=== PATIENT | male | born 1970 | race Caucasian/White ===

== ENCOUNTER 2018-09-27 06:35 | Inpatient (IN) | payer MEDICARE, MEDICAID ==
[2018-09-27] MEDS ORDERED: Acetaminophen 500 MG Tab PO ONE (07:00)
[2018-09-27] MEDS ORDERED: Scopolamine 1.5 MG Transdermal Patch TRDERM ONE (07:00)
[2018-09-27] MEDS ORDERED: Celecoxib 200 MG Cap PO ONE (07:00)
[2018-09-27] MEDS ORDERED: fentaNYL 250 MCG/5 ML SDV ONE ×2 (07:01→09:16)
[2018-09-27] MEDS ORDERED: Propofol 200 MG/20 ML SDV ONE (07:04)
[2018-09-27] MEDS ORDERED: Ondansetron 4 MG/2 ML SDV ONE (07:04)
[2018-09-27] MEDS ORDERED: Dexamethasone 4 MG/ML SDV ONE (07:04)
[2018-09-27] MEDS ORDERED: Neostigmine Methylsulfate 1 MG/ML 5 ML Syringe ONE (07:04)
[2018-09-27] MEDS ORDERED: Succinylcholine 200 MG/10 ML MDV ONE (07:04)
[2018-09-27] MEDS ORDERED: Glycopyrrolate 0.2 MG/ML 5 ML MDV ONE (07:04)
[2018-09-27] MEDS ORDERED: Rocuronium 50 MG/5 ML Vial ONE ×2 (07:04→10:19)
[2018-09-27] MEDS ORDERED: Lactated Ringers 1,000 ML ONE (07:05)
[2018-09-27] MEDS ORDERED: cefOXitin 2 GM Vial ONE (07:11)
[2018-09-27 07:24] LABS: HEMOGLOBIN A1C 9.6 % (4.5-6.2)
[2018-09-27] MEDS ORDERED: Lidocaine 2% 100 MG/5 ML Syringe IVPUSH SCH (07:30)
[2018-09-27] MEDS ORDERED: Ketamine 500 MG/5 ML MDV IV SCH (07:30)
[2018-09-27] MEDS ORDERED: Dextrose 5%-Lactated Ringers 1,000 ML IV SCH ×2 (07:30→14:15)
[2018-09-27] MEDS ORDERED: Ropivacaine 60 ML, Dexamethasone 8 MG, EPINEPHrine 0.4 MG, Sodium Chloride 0.9% 17.6 ML NERVRT SCH ×4 (07:30)
[2018-09-27] MEDS ORDERED: Ketamine 50 MG in Sodium Chloride 0.9% 49.5 ML IV SCH (07:30)
[2018-09-27] MEDS ORDERED: Lidocaine 0.4%/D5W 2 GM/500 ML BAG IV SCH (08:00)
[2018-09-27] MEDS ORDERED: Albuterol/Ipratropium 3.0-0.5 MG/3 ML Neb Soln NEB ONE (08:00)
[2018-09-27] MEDS: cefOXitin 2 GM in Sodium Chloride 0.9% 50 ML IV ONE ×3 (09:32→14:38)
[2018-09-27] MEDS ORDERED: Labetalol 20 MG/4 ML Syringe ONE (10:18)
[2018-09-27] MEDS ORDERED: hydrOXYzine HCl 100 MG/2 ML SDV IM ONE (12:08)
[2018-09-27] MEDS ORDERED: fentaNYL 100 MCG/2 ML SDV IVPUSH ONE ×2 (12:24→12:41)
[2018-09-27] MEDS ORDERED: Insulin Lispro 100 Unit/ML 3 ML KwikPen SUBCUT ONE ×3 (12:38→21:30)
[2018-09-27] MEDS ORDERED: Metoclopramide 10 MG/2 ML SDV IVPUSH PRN (14:05)
[2018-09-27] MEDS ORDERED: Albuterol/Ipratropium 3.0-0.5 MG/3 ML Neb Soln INH PRN (14:05)
[2018-09-27] MEDS ORDERED: diphenhydrAMINE 50 MG/ML SDV IVPUSH PRN (14:05)
[2018-09-27] MEDS ORDERED: Labetalol 20 MG/4 ML Syringe IVPUSH PRN (14:05)
[2018-09-27] MEDS ORDERED: HYDROmorphone 0.5 MG/0.5 ML Syringe IVPUSH PRN (14:05)
[2018-09-27] MEDS ORDERED: Ondansetron 4 MG/2 ML SDV IVPUSH PRN (14:05)
[2018-09-27] MEDS ORDERED: HYDROmorphone 1 MG/ML Syringe IV PRN (14:05)
[2018-09-27] MEDS ORDERED: Pantoprazole 40 MG Vial IVPUSH SCH (15:30)
[2018-09-27] MEDS: Check scopolamine patch SCH ×2 (15:42→22:03)
[2018-09-27] MEDS: cefOXitin 2 GM in Sodium Chloride 0.9% 50 ML IV SCH ×2 (15:42→22:00)
[2018-09-27] MEDS: Acetaminophen Soln 650 MG/20.3 ML UD Cup PO SCH ×2 (15:45→22:00)
[2018-09-27] MEDS: Metoprolol Succinate 50 MG Tab.ER PO SCH (15:46)
[2018-09-27] MEDS: Heparin Sodium 5,000 Units/ML Vial SUBCUT SCH ×2 (15:46→23:04)
[2018-09-27] MEDS ORDERED: MVI, Adult with Vitamin K 10 ML, Thiamine 200 MG, Chromium/Copper/Mang/Selen/Zn 1 ML in... IV SCH ×4 (16:00)
[2018-09-27] MEDS: Albuterol/Ipratropium 3.0-0.5 MG/3 ML Neb Soln INH SCH ×2 (18:05→22:06)
[2018-09-27] MEDS: hydrOXYzine HCl 100 MG/2 ML SDV IM PRN (18:05)
[2018-09-27] MEDS: metFORMIN 500 MG Tab PO SCH (18:06)
[2018-09-27] MEDS: Insulin Lispro 100 Unit/ML 3 ML KwikPen SUBCUT PRN (18:10)
[2018-09-27] MEDS: Lactated Ringers 1,000 ML IV SCH (19:15)
[2018-09-27] MEDS ORDERED: Insulin Glargine,Human Rec. Analog 100 Units/ML 3 ML Pen SUBCUT ONE ×2 (21:00)
[2018-09-27] MEDS: Gabapentin 250 MG/5 ML Solution ML 470 ML Bottle PO SCH (22:00)
[2018-09-28] MEDS: cefOXitin 2 GM in Sodium Chloride 0.9% 50 ML IV SCH ×4 (03:06→21:26)
[2018-09-28] MEDS ORDERED: Iohexol 647 MG/ML 50 ML SDV PO STA (03:37)
[2018-09-28] MEDS: hydrOXYzine HCl 100 MG/2 ML SDV IM PRN (04:32)
[2018-09-28] MEDS: Insulin Lispro 100 Unit/ML 3 ML KwikPen SUBCUT PRN ×4 (04:33→21:28)
[2018-09-28] MEDS: Acetaminophen Soln 650 MG/20.3 ML UD Cup PO SCH ×4 (04:33→21:27)
[2018-09-28] MEDS: Lactated Ringers 1,000 ML IV SCH (04:40)
--- NOTE | 2018-09-28 04:41 | CRLCR ---
Indication: Status post Flori-en-Y surgery. Technique: Abdomen 3 view Comparison: None Findings/Impression: Three submitted images show no dilated loops of bowel within the abdomen with a suture line in the left flank as well as a left upper quadrant drain. Some oral contrast is present on the examination opacifying the distal esophagus and proximal small bowel. No gross extravasation seen. Dictated by Jimmie Morris MD @ Sep 28 2018 4:39AM Signed by Dr. Jimmie Morris @ Sep 28 2018 4:40AM
[2018-09-28] MEDS: Celecoxib 200 MG Cap PO SCH (07:53)
[2018-09-28] MEDS: metFORMIN 500 MG Tab PO SCH ×2 (07:56→17:38)
[2018-09-28] MEDS: Heparin Sodium 5,000 Units/ML Vial SUBCUT SCH ×2 (07:59→15:44)
[2018-09-28] MEDS: Albuterol/Ipratropium 3.0-0.5 MG/3 ML Neb Soln INH SCH ×4 (08:18→21:26)
[2018-09-28] MEDS ORDERED: Ondansetron 4 MG Tab.DIS PO PRN (08:27)
[2018-09-28] MEDS ORDERED: Insulin Glargine,Human Rec. Analog 100 Units/ML 3 ML Pen SUBCUT ONE (09:00)
[2018-09-28] MEDS ORDERED: Non-Formulary Medication 1 Each (Metoprolol Succinate [Toprol Xl 100mg] 100 MG) PO SCH (09:00)
[2018-09-28] MEDS ORDERED: Check scopolamine patch SCH (09:00)
[2018-09-28] MEDS: Gabapentin 250 MG/5 ML Solution ML 470 ML Bottle PO SCH ×3 (09:46→21:25)
[2018-09-28] MEDS: Metoprolol Succinate 50 MG Tab.ER PO SCH (09:55)
[2018-09-28] MEDS: Lisinopril 20 MG Tab PO SCH (10:10)
[2018-09-28] MEDS: Hydrochlorothiazide 25 MG Tab PO SCH (10:11)
[2018-09-28] MEDS: Check scopolamine patch SCH ×2 (10:13→21:27)
[2018-09-28] MEDS: Loratadine 10 MG Tab PO SCH (10:14)
[2018-09-28] MEDS: DULoxetine 30 MG Cap PO SCH (10:14)
[2018-09-28] MEDS: Aspirin 81 MG Tab.EC PO SCH (10:15)
[2018-09-28] MEDS ORDERED: Lisinopril 10 MG Tab PO SCH (12:00)
--- NOTE | 2018-09-28 14:28 | PN ---
DATE OF SERVICE: 09/28/2018 SUBJECTIVE: Mir is postop day #1. He reports his pain is controlled. Blood sugars 374, 356, and 286. He is on a sliding scale with additional coverage with Humalog. He reports he has been feeling good. He does not want to have Trulicity restarted which gave him abdominal pain. Oral intake on a step 1 gastric bypass diet was 590. Urine output 3100. NIRAJ drain put out a light red drainage of 130 mL. REVIEW OF SYSTEMS: Remainder of review of systems negative for any pertinent positives and negatives. OBJECTIVE: GENERAL: Mir is a 47-year-old male. He is sitting up in the chair. Alert and orientated. VITAL SIGNS: TPR, 98.3, 83, 16, blood pressure 121/69. HEENT: Negative. NECK: Supple. HEART: Regular rate and rhythm. LUNGS: Clear. ABDOMEN: Dressing dry and intact. Abdominal binder is on. NIRAJ drain intact as above. EXTREMITIES: Without peripheral edema. ASSESSMENT: 1. Laparoscopic Flori-en-Y gastric bypass surgery. 2. Liver biopsy. 3. Repair of diaphragmatic hernia. 4. Excision of mediastinal lipoma. 5. Small bowel resection and partial gastrectomy for morbid obesity. 6. Hepatomegaly. 7. Diaphragmatic hernia. 8. Immobile small bowel secondary to severe fatty infiltration, mesentery. 9. Mediastinal lipoma. 10.Area of the lesser curvature of the stomach focally deserosalized secondary to adherent lesser omentum. Date of surgery 09/27/2018. Surgeon, Kain Delcid MD. PLAN: 1. Discontinue D5 LR IV. 2. Decrease lactated Ringer's to 100 mL per hour. 3. Dressing off, may shower. 4. Step 2 gastric bypass diet without cereal. 5. Lantus 25 units subcu at 0900. 6. Lantus 30 units subcu at bedtime. 7. Alogliptin before Januvia 25 mg p.o. daily. 8. Check with the patient's insurance company to see if Januvia is covered or else we will check a prior authorization. 9. Zofran ODT 4 mg every 4 hours p.r.n. nausea. 10.Communication order to drink one 30 mL med cup every 20 minutes or 3 per hour. 11.Aspirin 81 mg p.o. daily. 12.Cymbalta 60 mg p.o. daily. 13.Lisinopril 10 mg p.o. at noon. 14.Lisinopril/HCTZ 1 daily. 15.Claritin/loratadine 10 mg p.o. daily. 16.Metoprolol succinate/Toprol-XL 100 mg p.o. daily. 17.Good pulmonary toilet. 18.We will evaluate p.r.n. or in a.m. 19.Planned discharge in a.. Diana Sexton PA-C /[id number]
[2018-09-28] MEDS ORDERED: Pantoprazole 40 MG Delayed-Release Granules 1 Packet PO SCH (16:00)
[2018-09-28] MEDS ORDERED: MVI, Adult with Vitamin K 10 ML, Thiamine 200 MG, Chromium/Copper/Mang/Selen/Zn 1 ML in... IV SCH ×4 (16:00)
[2018-09-28] MEDS ORDERED: Insulin Glargine,Human Rec. Analog 100 Units/ML 3 ML Pen SUBCUT SCH (21:00)
[2018-09-29] MEDS: Heparin Sodium 5,000 Units/ML Vial SUBCUT SCH ×2 (01:23→07:59)
[2018-09-29] MEDS: Acetaminophen Soln 650 MG/20.3 ML UD Cup PO SCH ×2 (04:41→09:28)
[2018-09-29] MEDS: Albuterol/Ipratropium 3.0-0.5 MG/3 ML Neb Soln INH SCH (07:10)
[2018-09-29] MEDS: metFORMIN 500 MG Tab PO SCH (07:56)
[2018-09-29] MEDS: Celecoxib 200 MG Cap PO SCH (07:56)
[2018-09-29] MEDS ORDERED: Cyanocobalamin (Vitamin B12) 1,000 MCG/ML SDV IM ONE (09:00)
[2018-09-29] MEDS: Gabapentin 250 MG/5 ML Solution ML 470 ML Bottle PO SCH (09:27)
[2018-09-29] MEDS: Lisinopril 20 MG Tab PO SCH (09:28)
[2018-09-29] MEDS: Aspirin 81 MG Tab.EC PO SCH (09:28)
[2018-09-29] MEDS: Hydrochlorothiazide 25 MG Tab PO SCH (09:28)
[2018-09-29] MEDS: DULoxetine 30 MG Cap PO SCH (09:28)
[2018-09-29] MEDS: Check scopolamine patch SCH (09:29)
[2018-09-29] MEDS: Metoprolol Succinate 50 MG Tab.ER PO SCH (09:29)
[2018-09-29] MEDS: Loratadine 10 MG Tab PO SCH (09:30)
--- NOTE | 2018-09-30 08:43 | DISCH ---
ADMISSION DIAGNOSES: 1. Morbid obesity, BMI 46. 2. Type 2 diabetes without complication. 3. Gastroesophageal reflux disease. 4. Major depression disorder. 5. Chronic low back pain. 6. Osteochondritis dissecans of talus. 7. Irritable bowel syndrome. 8. Hypertension. 9. Constipation. 10.Fibromyalgia. 11.Arthritis of knees. 12.Borderline personality disorder. 13.Chronic obstructive pulmonary disease. 14.Post-traumatic stress disorder. 15.Polysubstance dependence, nonopioid, in remission. 16.Severe alcohol dependence, in early remission. 17.Mixed hypercholesterolemia with hypertriglyceridemia. 18.Chronic pain following surgery or procedure. 19.Psychophysiological insomnia. 20.Diabetic arthropathy. 21.Arthralgia. 22.Decreased strength, endurance, and mobility. DISCHARGE DIAGNOSES: 1. Laparoscopic Flori-en-Y gastric bypass surgery. 2. Liver biopsy. 3. Repair of diaphragmatic hernia. 4. Excision of mediastinal lipoma. 5. Small bowel resection. 6. Partial gastrectomy. POSTOPERATIVE DIAGNOSES: 1. Morbid obesity. 2. Hepatomegaly. 3. Diaphragmatic hernia. 4. Immobile small bowel secondary to severe fatty infiltration of mesentery. 5. Mediastinal lipoma in the area of the lesser curvature of the stomach, focally deserosalized secondary to adherent lesser omentum. 6. Date of surgery 09/27/2018. 7. Surgeon: Kain Delcid MD. HISTORY: Mir Carbajal is a 47-year-old male with longstanding history of morbid obesity and increasing comorbidities. After preoperative evaluation and discussion of possible risks and possible complications, he wished to proceed with surgical procedure. HOSPITAL COURSE: Mir had his surgery on 07/30/2018. He had no operative complications. On postoperative day #1, his upper GI was normal. He was started on step 2 gastric bypass diet without cereal. His blood sugars were monitored closely. He was given additional coverage with the Humalog and started on generic equivalent Januvia 100 mg, metformin 1000 mg b.i.d., and Lantus was adjusted according to his blood sugars. Vital signs were stable. Oral intake adequate at 2440. Urine output 4100. NIRAJ drain put out 50 mL of a light red drainage prior to being discharged. He did receive dietary education and a B12 1000 mcg injection. Mir will be discharged to home in stable condition on 09/29/2018. PHYSICAL EXAMINATION: GENERAL: Mir is a pleasant 47-year-old male. VITAL SIGNS: Height is 5 feet 5 inches, weight 278 pounds 14.4 ounces, BMI 46. TPR 98.9, 79, 16, blood pressure 121/76. HEENT: Negative. NECK: Supple. HEART: Regular rate and rhythm. LUNGS: Clear. ABDOMEN: Incisions look good. Sutures intact. NIRAJ drain will be removed and 4 x 4 will be placed over NIRAJ drain site. Abdominal binder has been on. EXTREMITIES: Without peripheral edema. LABORATORY DATA: Past 24 hour blood sugars starting with 0400; 286, 205, 182. DISPOSITION: Discharged to home. CONDITION: Stable and improving. FOLLOWUP APPOINTMENT: Diana Sexton PA-C, 10/05/2018 at 11 a.m. NEW MEDICATIONS: 1. Tylenol 650 mg q.6 hours for pain. 2. Celebrex 200 mg oral daily #14, to start tomorrow. 3. Lantus 30 units subcu at bedtime. 4. Zofran ODT 4 mg q.4 hours p.r.n. nausea. 5. Januvia 100 mg oral daily, #30, 11 refills. 6. He is to resume Cymbalta 60 mg oral daily. 7. Lisinopril 10 mg oral daily. 8. Lisinopril hydrochlorothiazide 20/25 one daily. 9. Loratadine/Claritin 10 mg oral daily. 10.Metoprolol-XL 100 mg daily. 11.Omeprazole 20 mg before breakfast. 12.Pravachol 10 mg oral at supper time. 13.Senna. 14.Docusate 1 tablet three times a day. 15.Metformin 1000 mg oral twice daily. He is to discontinue taking extra-strength Tylenol, vitamin D3, vitamin B12, Trulicity, folic acid, multivitamin, Super B, omega-3, and vitamin B12, and Levemir 46 is changed to 30 units once daily. DIET: Drink 8 to 10 glasses of water a day. Step 2 gastric bypass diet with no cereal until Wednesday10/12/2018. ACTIVITY: No lifting greater than 10 pounds for 2 weeks. Walk at least 6 times daily, distance and time as tolerated. Driving: Do not drive for 1 week. Shower/bathing: May shower. DISCHARGE INSTRUCTIONS: Notify provider if any increased pain, nausea, or vomiting. Keep site clean and dry. Wear abdominal binder for 2 weeks and then as tolerated. SPECIAL INSTRUCTION: 1. Use incentive spirometer 10 times every hour while awake. 2. Check blood sugars 4 times a day and call clinic on Wednesday with results of blood sugars at [phone]. 3. Call hospital on Wednesday and Wednesday, [phone], and Diana Sexton PA-C page, so we can review the blood sugar results. 4. Keep a record of food and liquid intake. 5. Bring record of blood sugars, protein and fluid intake to clinic appointment.
--- NOTE | 2018-10-04 09:38 | OR ---
DATE OF PROCEDURE: 09/27/2018 SURGEON: Kain Delcid MD PREOPERATIVE DIAGNOSIS: Morbid obesity. POSTOPERATIVE DIAGNOSES: 1. Morbid obesity. 2. Marked hepatomegaly. 3. Paraesophageal diaphragmatic hernia. 4. Immobile small bowel secondary to severe fatty infiltration of small bowel mesentery. 5. Mediastinal lipoma. 6. Area of lesser curvature of stomach focally deserosalized secondary to adherent omentum. PROCEDURE: 1. Laparoscopic Flori-en-Y gastric bypass with long limb gastroenterostomy (78082). 2. Joseph-Cut needle liver biopsy (87634). 3. Repair of paraesophageal diaphragmatic hernia (35505). 4. Excision of mediastinal lipoma (22578). 5. Small bowel resection (59939). 6. Partial gastrectomy (58390). ANESTHESIA: General. OPERATIONS OFFICER AFLOAT: Diana Sexton PA-C and MYKEL Velazquez. INDICATION FOR PROCEDURE: This is a 47-year-old male presenting with longstanding morbid obesity and increasingly significant comorbidities. After preoperative evaluation and discussion, he wished to proceed with a gastric bypass procedure. Potential risks of the procedure including bleeding, infection, injury to underlying viscera, problems with bowel obstruction over time, leaks from various GI tract closures, as well as possibility of cardiopulmonary, septic, or hemorrhagic complications leading to were discussed, and the patient wishes to proceed. DETAILS OF PROCEDURE: The patient was taken to the operating room, and after general endotracheal anesthesia was induced, he was placed in a lithotomy position and the abdomen prepped and draped. At 15 cm inferior and 5 cm left of xiphoid process, a transverse incision was made and peritoneal cavity entered under direct vision with an Optiview trocar inflated to 15 mmHg pressure of CO2. Laparoscope was then reinserted. No underlying trocar insertion site injuries were seen. Following this, 5 additional trocars were placed across the upper and mid abdomen, bilateral subcostal transversus abdominis plane blocks were placed, and the liver was noted to be markedly enlarged and fatty infiltrated. Joseph-Cut needle liver biopsies were obtained from left lobe of liver, and minimal bleeding from the biopsy sites was controlled with electrocautery. At this point, the omentum was then divided in the midline up to the level of the transverse colon. This allowed identification of small bowel at the ligament of Treitz. The small bowel was then traced out 200 cm distal to that point and divided transversely with the WISAM stapler. At that point, the small bowel was noted to be extremely immobile, due to it being quite restricted by a very fat ladened mesentery to facilitate subsequent mobility of the jejunojejunostomy. Ten centimeters of the biliopancreatic limb was then resected to underlying mesentery and divided with Harmonic scalpel and the dissection was accomplished with WISAM staple line and the small bowel specimen delivered from the field. Small bowel was traced out additional 200 cm, where the [id number] enteroenterostomy was accomplished with an internal firing of the Endo-WISAM 60 mm stapler, common opening closed transversely with the same stapler, angles anastomosed, and mesenteric defect approximated with some 0 Ethibond stitch, along with fibrin sealant. The divided end of the Flori limb was from the mesentery for a few centimeters, which allowed antecolic positioning of the Flori limb up to the level of the gastroesophageal junction without tension. The liver was the retracted anteriorly, and the patient was noted to have a significant paraesophageal diaphragmatic hernia with prolapsed portion of the gastric fundus, perigastric fat, and tongue of omentum were noted to be prolapsing in a plane anterior to the course of the esophagus. This was reduced, and the peritoneum overlying it incised and reflected downward. The patient was noted to have a roughly ping-pong ball-sized mediastinal lipoma present, and this was excised and sent for histologic evaluation. This allowed more adequate closure of the diaphragmatic hernia, which was accomplished with 0 Ethibond sutures reinforced with PTFE pledgets. The gastrointestinal catheter was then inflated to 15 mL and pulled up snuggly against the EG junction. Gastric wall over the apex of balloon was then marked with electrocautery, and balloon catheter deflated and pulled up in the esophagus. The dissection began along the lesser curvature of the stomach. This began just below the cauterized pamela. The stomach in that area was noted to be quite densely fused to the lesser omentum, suggesting possible previous ulcer in that area. As this was dissected, significant portion of the stomach was noted to be deserosalized, and after initial firing of the WISAM stapler at the level of the cauterized pamela in a transverse orientation, that portion of the stomach was resected to make sure there were no subsequent leaks from that deserosalized portion of the stomach. This was accomplished with 2 firings of WISAM black loads. In general, the stomach was very thickened, and the entire pouch was created with black loads. After initial transverse firing, additional firings up to and through the angle of His were accomplished, and upon completion of the pouch, both staple lines were noted to be intact. The anvil of a 25 mm EEA stapler was attached to Carr sump type tube. The latter was brought down through the mouth. Of note, we used a 4.8 mm StapleLight EEA in this case because of the thickness of the stomach, as well as small bowel. After placement of the anvil in the pouch, the divided Flori limb was opened and the main body of the EEA stapler passed several centimeters into the small bowel, brought up the anvil, and united with it, thus creating the gastrojejunostomy. Upon removal of stapler, double donuts of mucosa were noted within it. Small bowel was closed off with a vascular staple line. Gastrojejunostomy was reinforced with 3-0 Vicryl seromuscular stitch, along with fibrin sealant. Leak test was accomplished with injection of 120 mL of air in the gastric pouch while submerged with a cefoxitin-containing saline solution. No leaks were identified. Two Yaw-Curtis drains were then placed adjacent to the gastrojejunostomy and taken out the subcostal trocar sites. With no further problems noted, trocars were removed and the peritoneal cavity deflated. Incisions were closed with some 4-0 Vicryl skin stitch, and the drains were also affixed with some 4-0 Vicryl stitch as well. The patient was taken to the recovery room in satisfactory condition. Physician physician assistant, Diana Sexton, played an essential role in assisting in this case, helping to position the patient, retract structures as needed, as well as suturing and cutting sutures when indicated. Her presence improved patient safety and decreased the operative time. Kain Delcid MD /[id number]
== END 2018-09-29 10:35 | disposition home or self-care (01) | DRG 620 ==
LOC: JP.MS 06:35 → JP.SDS 06:36 → EDSTATUS 07:30 → JP.2SS 13:39
PROVIDERS: ADMIT Surgery; ATTEND Surgery
PROC: 0D164ZA Bypass Stomach to Jejunum, Percutaneous Endoscopic Approach (ICD-10-PCS; principal; 2018-09-27)
PROC: 0FB24ZX Excision of Left Lobe Liver, Percutaneous Endoscopic Approach, Diagnostic (ICD-10-PCS; 2018-09-27)
PROC: 0BQT4ZZ Repair Diaphragm, Percutaneous Endoscopic Approach (ICD-10-PCS; 2018-09-27)
PROC: 0DB63ZZ Excision of Stomach, Percutaneous Approach (ICD-10-PCS; 2018-09-27)
PROC: 0DB83ZZ Excision of Small Intestine, Percutaneous Approach (ICD-10-PCS; 2018-09-27)
PROC: 0DB94ZZ Excision of Duodenum, Percutaneous Endoscopic Approach (ICD-10-PCS; 2018-09-27)
PROC: 0WBC4ZX Excision of Mediastinum, Percutaneous Endoscopic Approach, Diagnostic (ICD-10-PCS; 2018-09-27)
PROC: 0DB64ZZ Excision of Stomach, Percutaneous Endoscopic Approach (ICD-10-PCS; 2018-09-27)
DX: E66.01 Morbid (severe) obesity due to excess calories (principal); F33.1 Major depressive disorder, recurrent, moderate; Z68.42 Body mass index [BMI] 45.0-49.9, adult; R16.0 Hepatomegaly, not elsewhere classified; K44.9 Diaphragmatic hernia without obstruction or gangrene; D17.4 Benign lipomatous neoplasm of intrathoracic organs; K76.0 Fatty (change of) liver, not elsewhere classified; K59.8 Other specified functional intestinal disorders; K21.9 Gastro-esophageal reflux disease without esophagitis; G89.29 Other chronic pain; M54.5 Low back pain; K58.1 Irritable bowel syndrome with constipation; I10 Essential (primary) hypertension; M79.7 Fibromyalgia; M17.0 Bilateral primary osteoarthritis of knee; F60.3 Borderline personality disorder; J44.9 Chronic obstructive pulmonary disease, unspecified; F43.10 Post-traumatic stress disorder, unspecified; F10.21 Alcohol dependence, in remission; F19.21 Other psychoactive substance dependence, in remission; E78.00 Pure hypercholesterolemia, unspecified; E78.1 Pure hyperglyceridemia; F51.04 Psychophysiologic insomnia; E11.618 Type 2 diabetes mellitus with other diabetic arthropathy; E11.65 Type 2 diabetes mellitus with hyperglycemia; E78.5 Hyperlipidemia, unspecified; J45.40 Moderate persistent asthma, uncomplicated; Z79.899 Other long term (current) drug therapy; Z79.4 Long term (current) use of insulin; Z98.1 Arthrodesis status; Z88.1 Allergy status to other antibiotic agents; Z88.8 Allergy status to other drugs, medicaments and biological substances
CPT/HCPCS: 36415; 74240; 80053; 82962; 83036; 83735; 83880; 84100; 85027; 86850; 86900; 86901; 88304; 88307; 88313; 94640; A9270-GY; C9113; J0171; J0330; J0694; J1100; J1170; J1644; J1815; J1815-GY; J2001; J2405; J2704; J2710; J2795; J3010; J3410; J3411; J3420; J3490; J7030; J7042; J7050; J7120; J7620-GY; Q9967

== ENCOUNTER 2022-01-09 08:02 | Inpatient (IN) | payer MEDICARE, MEDICAID ==
[~2022-01-09 08:02] MED LIST: Bupivacaine 0.5%/EPINEPHrine 1:200,000 50 ML MDV ONE; Dexamethasone 4 MG/ML SDV ONE; Glycopyrrolate 0.2 MG/ML 5 ML MDV ONE; Lidocaine 1% 50 ML MDV ONE; Meropenem 500 MG SDV ONE; Neostigmine Methylsulfate 1 MG/ML 5 ML Syringe ONE; Ondansetron 4 MG/2 ML SDV ONE; Propofol 200 MG/20 ML SDV ONE; Rocuronium 50 MG/5 ML Vial ONE; Succinylcholine 200 MG/10 ML MDV ONE; fentaNYL 250 MCG/5 ML SDV ONE
[2022-01-09] MEDS ORDERED: Acetaminophen 500 MG Tab PO ONE (08:30)
[2022-01-09] MEDS ORDERED: Dextrose 5%-Lactated Ringers 1,000 ML IV SCH ×2 (09:30→16:00)
[2022-01-09] MEDS ORDERED: Albuterol/Ipratropium 3.0-0.5 MG/3 ML Neb Soln NEB ONE (09:45)
[2022-01-09] MEDS ORDERED: Ketamine 500 MG/5 ML MDV IV SCH (10:00)
[2022-01-09] MEDS ORDERED: ceFAZolin 2 GM in Sodium Chloride 0.9% 100 ML IV ONE (10:00)
[2022-01-09] MEDS ORDERED: Ketamine 17 MG in Sodium Chloride 0.9% 19.83 ML IV SCH (10:00)
[2022-01-09] MEDS ORDERED: ceFAZolin 2 GM in Premix Bag 1 BAG IV ONE (10:00)
[2022-01-09] MEDS ORDERED: fentaNYL 250 MCG/5 ML SDV ONE (13:19)
[2022-01-09] MEDS ORDERED: Rocuronium 50 MG/5 ML Vial ONE (13:38)
[2022-01-09] MEDS ORDERED: Naloxone 0.4 MG/ML SDV IVPUSH PRN (14:15)
[2022-01-09] MEDS ORDERED: diphenhydrAMINE 50 MG/ML SDV IVPUSH PRN ×2 (14:15→16:00)
[2022-01-09] MEDS ORDERED: Ondansetron 4 MG/2 ML SDV IVPUSH PRN (14:15)
[2022-01-09] MEDS ORDERED: diphenhydrAMINE 25 MG Cap PO PRN (14:15)
[2022-01-09] MEDS ORDERED: Linezolid 600 MG/300 ML Premix Bag IRR ONE (14:23)
[2022-01-09] MEDS: HYDROmorphone/Normal Saline 6 MG/30 ML PCA Vial IV PRN (14:38)
[2022-01-09] MEDS ORDERED: Lactated Ringers 1,000 ML ONE (14:44)
[2022-01-09] MEDS ORDERED: Naloxone 0.4 MG/ML SDV IV PRN (15:00)
[2022-01-09] MEDS ORDERED: fentaNYL 100 MCG/2 ML SDV ONE (15:09)
[2022-01-09] MEDS ORDERED: Glucagon,Human Recombinant 1 MG Vial IM PRN ×2 (15:24→16:00)
[2022-01-09] MEDS ORDERED: 50% Dextrose in Water 50 ML Syringe IVPUSH PRN ×2 (15:24→16:00)
[2022-01-09] MEDS ORDERED: hydrOXYzine HCL 100 MG/2 ML SDV IM ONE (15:27)
[2022-01-09] MEDS ORDERED: Insulin Lispro 100 Unit/ML 3 ML KwikPen SUBCUT ONE (15:45)
[2022-01-09] MEDS ORDERED: Cyclobenzaprine 10 MG Tab PO PRN (15:51)
[2022-01-09] MEDS ORDERED: Lactated Ringers 1,000 ML IV SCH (16:00)
[2022-01-09] MEDS ORDERED: Albuterol/Ipratropium 3.0-0.5 MG/3 ML Neb Soln INH PRN (16:00)
[2022-01-09] MEDS ORDERED: LORazepam 1 MG Tab PO PRN (16:00)
[2022-01-09] MEDS ORDERED: Acetaminophen 500 MG Tab PO PRN (16:00)
[2022-01-09] MEDS ORDERED: Scopolamine 1.5 MG Transdermal Patch TOP SCH (16:00)
[2022-01-09] MEDS ORDERED: LORazepam 2 MG/ML SDV IVPUSH ONE (16:00)
[2022-01-09] MEDS ORDERED: Labetalol 20 MG/4 ML Syringe IVPUSH PRN (16:00)
[2022-01-09] MEDS ORDERED: Metoclopramide 10 MG/2 ML SDV IVPUSH PRN (16:00)
[2022-01-09] MEDS ORDERED: LORazepam 2 MG/ML SDV IVPUSH PRN (16:01)
[2022-01-09] MEDS ORDERED: Hypromellose 0.3% Ophth Soln 15 ML Bottle EYEBOTH PRN (16:02)
[2022-01-09] MEDS: MVI, Adult with Vitamin K 10 ML, Thiamine 200 MG, Zinc/Copper/Manganese/Selenium 1 ML i... IV SCH ×4 (16:43)
[2022-01-09] MEDS: Ondansetron 4 MG/2 ML SDV IVPUSH PRN ×2 (17:07→20:56)
[2022-01-09] MEDS: Insulin Lispro 100 Unit/ML 3 ML KwikPen SUBCUT SCH ×2 (17:57→21:54)
[2022-01-09] MEDS: Pantoprazole 40 MG Vial IVPUSH SCH (17:58)
[2022-01-09] MEDS: Pravastatin 20 MG Tab PO SCH (18:33)
[2022-01-09] MEDS: Lisinopril 20 MG Tab PO SCH (18:33)
[2022-01-09] MEDS: Acetaminophen 500 MG Tab PO SCH (18:33)
[2022-01-09] MEDS: cefOXitin 2 GM in Sodium Chloride 0.9% 50 ML IV SCH (19:34)
[2022-01-09] MEDS: Heparin Sodium 5,000 Units/ML Vial SUBCUT SCH (19:45)
[2022-01-09] MEDS: Albuterol/Ipratropium 3.0-0.5 MG/3 ML Neb Soln INH SCH (21:15)
[2022-01-10] MEDS: Acetaminophen 500 MG Tab PO SCH ×3 (01:23→16:11)
[2022-01-10] MEDS: cefOXitin 2 GM in Sodium Chloride 0.9% 50 ML IV SCH ×4 (01:23→19:32)
[2022-01-10] MEDS: Ondansetron 4 MG/2 ML SDV IVPUSH PRN (01:32)
[2022-01-10] MEDS ORDERED: Iopamidol 612 MG/ML 50 ML SDV IV PRN (04:09)
[2022-01-10] MEDS: Insulin Lispro 100 Unit/ML 3 ML KwikPen SUBCUT SCH ×4 (04:56→21:38)
[2022-01-10 05:34] LABS: ESTIMATED GFR 82 mL/min (>60)
[2022-01-10] MEDS: DULoxetine 30 MG Cap PO SCH (08:40)
[2022-01-10] MEDS: Aspirin 81 MG Tab.EC PO SCH (08:41)
[2022-01-10] MEDS: Lisinopril 20 MG Tab PO SCH (08:41)
[2022-01-10] MEDS: Celecoxib 200 MG Cap PO SCH ×2 (08:41→20:50)
[2022-01-10] MEDS: SCOPOLAMINE PATCH CHECK TOP SCH (08:42)
[2022-01-10] MEDS: Heparin Sodium 5,000 Units/ML Vial SUBCUT SCH ×2 (08:44→19:32)
[2022-01-10] MEDS: Bisacodyl 5 MG Tab PO SCH ×2 (08:53→20:50)
[2022-01-10] MEDS: HYDROmorphone/Normal Saline 6 MG/30 ML PCA Vial IV PRN ×3 (09:45→22:35)
[2022-01-10] MEDS: Lactated Ringers 1,000 ML IV SCH (11:30)
[2022-01-10] MEDS: Hypromellose 0.3% Ophth Soln 15 ML Bottle EYEBOTH SCH (11:31)
[2022-01-10] MEDS: Mometasone Furoate Powder 220 MCG/Puff 14 Dose Inhaler INH SCH (11:49)
[2022-01-10] MEDS: Albuterol/Ipratropium 3.0-0.5 MG/3 ML Neb Soln INH SCH ×4 (13:32→20:49)
[2022-01-10] MEDS: MVI, Adult with Vitamin K 10 ML, Thiamine 200 MG, Zinc/Copper/Manganese/Selenium 1 ML i... IV SCH ×4 (16:04)
[2022-01-10] MEDS: Pravastatin 20 MG Tab PO SCH (16:10)
[2022-01-10] MEDS: Pantoprazole 40 MG Vial IVPUSH SCH (16:10)
[2022-01-11] MEDS: Acetaminophen 500 MG Tab PO SCH ×3 (00:57→16:08)
[2022-01-11] MEDS: Lactated Ringers 1,000 ML IV SCH (00:57)
[2022-01-11] MEDS: cefOXitin 2 GM in Sodium Chloride 0.9% 50 ML IV SCH ×2 (01:00→07:50)
[2022-01-11] MEDS: hydrOXYzine HCL 100 MG/2 ML SDV IM PRN ×2 (02:06→19:34)
[2022-01-11] MEDS: Insulin Lispro 100 Unit/ML 3 ML KwikPen SUBCUT SCH ×4 (04:45→21:46)
[2022-01-11] MEDS: Albuterol/Ipratropium 3.0-0.5 MG/3 ML Neb Soln INH SCH ×4 (07:40→20:49)
[2022-01-11] MEDS ORDERED: Sodium Chloride 0.9% 10 ML Syringe IV PRN (07:51)
[2022-01-11] MEDS: Heparin Sodium 5,000 Units/ML Vial SUBCUT SCH ×2 (07:51→20:49)
[2022-01-11] MEDS: oxyCODONE 5 MG Tab PO PRN ×3 (07:59→18:08)
[2022-01-11] MEDS: Celecoxib 200 MG Cap PO SCH ×2 (08:01→20:49)
[2022-01-11] MEDS: Aspirin 81 MG Tab.EC PO SCH (08:02)
[2022-01-11] MEDS: DULoxetine 30 MG Cap PO SCH (08:02)
[2022-01-11] MEDS: Bisacodyl 5 MG Tab PO SCH ×2 (08:03→20:49)
[2022-01-11] MEDS: Lisinopril 20 MG Tab PO SCH (08:03)
[2022-01-11] MEDS ORDERED: Cyanocobalamin (Vitamin B12) 1,000 MCG/ML SDV IM ONE (09:00)
[2022-01-11] MEDS: Mometasone Furoate Powder 220 MCG/Puff 14 Dose Inhaler INH SCH (09:04)
[2022-01-11] MEDS: SCOPOLAMINE PATCH CHECK TOP SCH (09:04)
[2022-01-11] MEDS: Hypromellose 0.3% Ophth Soln 15 ML Bottle EYEBOTH SCH (10:47)
[2022-01-11] MEDS: Pravastatin 20 MG Tab PO SCH (16:08)
[2022-01-11] MEDS ORDERED: Pantoprazole 40 MG Tab.CR PO SCH (17:00)
[2022-01-11] MEDS: Ondansetron 4 MG/2 ML SDV IVPUSH PRN (19:25)
[2022-01-11] MEDS: Ondansetron 4 MG Tab.DIS PO PRN (20:49)
[2022-01-12] MEDS: Acetaminophen 500 MG Tab PO SCH ×2 (00:33→08:18)
[2022-01-12] MEDS: Insulin Lispro 100 Unit/ML 3 ML KwikPen SUBCUT SCH (05:20)
[2022-01-12] MEDS: oxyCODONE 5 MG Tab PO PRN (05:31)
[2022-01-12] MEDS: Mometasone Furoate Powder 220 MCG/Puff 14 Dose Inhaler INH SCH (07:06)
[2022-01-12] MEDS: Albuterol/Ipratropium 3.0-0.5 MG/3 ML Neb Soln INH SCH (07:06)
[2022-01-12] MEDS: Aspirin 81 MG Tab.EC PO SCH (08:16)
[2022-01-12] MEDS: Heparin Sodium 5,000 Units/ML Vial SUBCUT SCH (08:16)
[2022-01-12] MEDS: DULoxetine 30 MG Cap PO SCH (08:16)
[2022-01-12] MEDS: Lisinopril 20 MG Tab PO SCH (08:17)
[2022-01-12] MEDS: Celecoxib 200 MG Cap PO SCH (08:17)
[2022-01-12] MEDS: Hypromellose 0.3% Ophth Soln 15 ML Bottle EYEBOTH SCH (08:17)
[2022-01-12] MEDS: Bisacodyl 5 MG Tab PO SCH (08:17)
[2022-01-12] MEDS: Ondansetron 4 MG Tab.DIS PO PRN (09:23)
== END 2022-01-12 10:05 | disposition home or self-care (01) | DRG 329 ==
LOC: JP.SDS 08:02 → JP.2SS 16:36
PROVIDERS: ADMIT Surgery; ATTEND Surgery
PROC: 0DBA0ZZ Excision of Jejunum, Open Approach (ICD-10-PCS; principal; 2022-01-09)
PROC: 0DB80ZZ Excision of Small Intestine, Open Approach (ICD-10-PCS; 2022-01-09)
PROC: 0DS80ZZ Reposition Small Intestine, Open Approach (ICD-10-PCS; 2022-01-09)
PROC: 0WPF0JZ Removal of Synthetic Substitute from Abdominal Wall, Open Approach (ICD-10-PCS; 2022-01-09)
PROC: 3E0M05Z Introduction of Adhesion Barrier into Peritoneal Cavity, Open Approach (ICD-10-PCS; 2022-01-09)
DX: K95.89 Other complications of other bariatric procedure (principal); K56.2 Volvulus; K21.9 Gastro-esophageal reflux disease without esophagitis; M54.50 Low back pain, unspecified; G89.29 Other chronic pain; J44.9 Chronic obstructive pulmonary disease, unspecified; G47.33 Obstructive sleep apnea (adult) (pediatric); E11.9 Type 2 diabetes mellitus without complications; I10 Essential (primary) hypertension; F41.8 Other specified anxiety disorders; E66.01 Morbid (severe) obesity due to excess calories; Z79.899 Other long term (current) drug therapy; Z68.36 Body mass index [BMI] 36.0-36.9, adult
CPT/HCPCS: 36415; 74240; 74240-26; 80053; 82947; 83735; 83880; 84100; 85025; 93005; 94640; A9270-GY; C9113; J0171; J0330; J0690; J0694; J1100; J1170; J1644; J1815; J2001; J2020; J2060; J2185; J2405; J2704; J2710; J2765; J2795; J3010; J3410; J3411; J3420; J3490; J7120; J7121; J7620; Q0162; Q9967

== ENCOUNTER 2022-10-15 07:44 | Inpatient (IN) | payer MEDICARE, MEDICAID ==
[~2022-10-15 07:44] MED LIST changes: -Bupivacaine 0.5%/EPINEPHrine 1:200,000 50 ML MDV ONE; -Dexamethasone 4 MG/ML SDV ONE; -Glycopyrrolate 0.2 MG/ML 5 ML MDV ONE; -Lidocaine 1% 50 ML MDV ONE; -Neostigmine Methylsulfate 1 MG/ML 5 ML Syringe ONE; -Ondansetron 4 MG/2 ML SDV ONE; -Propofol 200 MG/20 ML SDV ONE; -Rocuronium 50 MG/5 ML Vial ONE; -Succinylcholine 200 MG/10 ML MDV ONE
[2022-10-15] MEDS ORDERED: Scopolamine 1.5 MG Transdermal Patch TRDERM SCH (08:00)
[2022-10-15] MEDS ORDERED: Dextrose 5%-Lactated Ringers 1,000 ML IV SCH (08:30)
[2022-10-15 08:47] LABS: A/G RATIO 1.3 (1.2-2.2); ALANINE AMINOTRANSFERASE,ALT 28 U/L (12-78); ALBUMIN 3.7 g/dL (3.4-5.0); ALKALINE PHOSPHATASE 137 U/L (46-116); ANION GAP 7.7 mmol/L (5.0-14.0); ASPARTATE AMNIOTRANSFERASE,AST 18 U/L (15-37); BILIRUBIN TOTAL 0.5 mg/dL (0.2-1.0); BLOOD UREA NITROGEN,BUN 7 mg/dL (7-18); CALCIUM 8.4 mg/dL (8.5-10.1); CARBON DIOXIDE,CO2 27 mmol/L (21-32); CHLORIDE,CL 106 mmol/L (100-108); CREATININE 0.8 mg/dL (0.8-1.3); EST CRCL DRUG DOSING (CG) 93.53 mL/min; ESTIMATED GFR 108 mL/min (>60); FERRITIN 103 ng/ml (8-388); GLUCOSE RANDOM 75 mg/dL (74-106); MAGNESIUM 1.9 mg/dL (1.8-2.4); PHOSPHORUS 3.5 mg/dL (2.5-4.9); POTASSIUM,K 3.9 mmol/L (3.6-5.2); PROTEIN TOTAL,TP 6.6 g/dL (6.4-8.2); SODIUM,NA 141 mmol/L (140-148)
[2022-10-15 08:53] LABS: HEMOGLOBIN A1C 5.3 % (4.5-6.2)
[2022-10-15] MEDS ORDERED: Albuterol/Ipratropium 3.0-0.5 MG/3 ML Neb Soln NEB ONE (09:00)
[2022-10-15] MEDS ORDERED: Ketamine 18 MG in Sodium Chloride 0.9% 19.82 ML IV SCH (09:30)
[2022-10-15] MEDS ORDERED: Ketamine 500 MG/5 ML MDV IV SCH (09:30)
[2022-10-15] MEDS ORDERED: ceFAZolin 2 GM in Premix Bag 1 BAG IV ONE (09:30)
[2022-10-15] MEDS ORDERED: Ropivacaine 40 ML, dexAMETHasone 8 MG, EPINEPHrine 0.4 MG, Sodium Chloride 0.9% 37.6 ML NERVRT SCH ×4 (09:30)
[2022-10-15] MEDS ORDERED: Neostigmine Methylsulfate 1 MG/ML 5 ML Syringe ONE (09:57)
[2022-10-15] MEDS ORDERED: Ondansetron 4 MG/2 ML SDV ONE ×2 (09:57→10:03)
[2022-10-15] MEDS ORDERED: Succinylcholine 200 MG/10 ML MDV ONE (09:57)
[2022-10-15] MEDS ORDERED: Propofol 200 MG/20 ML SDV ONE (09:57)
[2022-10-15] MEDS ORDERED: Glycopyrrolate 0.2 MG/ML 5 ML MDV ONE (09:57)
[2022-10-15] MEDS ORDERED: Rocuronium 50 MG/5 ML Vial ONE (09:57)
[2022-10-15] MEDS ORDERED: Dexamethasone 4 MG/ML SDV ONE (09:57)
[2022-10-15] MEDS ORDERED: Ondansetron 4 MG/2 ML SDV IVPUSH ONE (09:59)
[2022-10-15] MEDS ORDERED: Bupivacaine 0.5% 50 ML MDV ONE (10:29)
[2022-10-15] MEDS ORDERED: Lidocaine 1% with EPINEPHrine 1:100,000 50 ML MDV ONE (10:29)
[2022-10-15] MEDS ORDERED: Ondansetron 4 MG/2 ML SDV IVPUSH PRN ×2 (11:38→14:00)
[2022-10-15] MEDS ORDERED: diphenhydrAMINE 25 MG Cap PO PRN (11:38)
[2022-10-15] MEDS ORDERED: diphenhydrAMINE 50 MG/ML SDV IVPUSH PRN ×2 (11:38→14:00)
[2022-10-15] MEDS ORDERED: Naloxone 0.4 MG/ML SDV IVPUSH PRN (11:38)
[2022-10-15] MEDS ORDERED: fentaNYL 250 MCG/5 ML SDV ONE ×2 (11:43→11:59)
[2022-10-15] MEDS ORDERED: Naloxone 0.4 MG/ML SDV IV PRN (12:00)
[2022-10-15] MEDS ORDERED: Linezolid 600 MG/300 ML Premix Bag IRR ONE (12:00)
[2022-10-15] MEDS: HYDROmorphone/Normal Saline 6 MG/30 ML PCA Vial IV PRN ×2 (12:01→20:14)
[2022-10-15] MEDS ORDERED: Acetaminophen 1,000 MG in Premix Bag 1 BAG IV ONE (12:30)
[2022-10-15] MEDS ORDERED: Mupirocin Oint 22 GM Tube ONE (12:32)
[2022-10-15] MEDS ORDERED: hydrOXYzine HCl 50 MG/ML SDV IM PRN (14:00)
[2022-10-15] MEDS ORDERED: Metoclopramide 10 MG/2 ML SDV IVPUSH PRN (14:00)
[2022-10-15] MEDS ORDERED: Albuterol/Ipratropium 3.0-0.5 MG/3 ML Neb Soln INH PRN (14:00)
[2022-10-15] MEDS ORDERED: Labetalol 20 MG/4 ML Syringe IVPUSH PRN (14:00)
[2022-10-15] MEDS ORDERED: Acetaminophen 500 MG Tab PO PRN (14:00)
[2022-10-15] MEDS ORDERED: Fluticasone NASAL Spray 16 GM Bottle NASBOTH PRN (14:03)
[2022-10-15] MEDS: Cyclobenzaprine 10 MG Tab PO PRN (14:22)
[2022-10-15] MEDS: Albuterol/Ipratropium 3.0-0.5 MG/3 ML Neb Soln INH SCH ×2 (15:03→20:18)
[2022-10-15] MEDS: Acetaminophen 500 MG Tab PO SCH ×2 (16:30→23:17)
[2022-10-15] MEDS: MVI, Adult with Vitamin K 10 ML, Thiamine 200 MG, Zinc/Copper/Manganese/Selenium 1 ML i... IV SCH ×4 (16:32)
[2022-10-15] MEDS: Pantoprazole 40 MG Vial IVPUSH SCH (16:37)
[2022-10-15] MEDS: ceFAZolin 2 GM in Premix Bag 1 BAG IV SCH (19:23)
[2022-10-15] MEDS: Heparin Sodium 5,000 Units/ML Vial SUBCUT SCH (19:27)
[2022-10-15] MEDS: Polyethylene Glycol 3350 Powder 17 GM Packet PO SCH (20:17)
[2022-10-15] MEDS: Pravastatin 20 MG Tab PO SCH (20:17)
[2022-10-15] MEDS: Dextrose 5%-Lactated Ringers 1,000 ML IV SCH (23:16)
[2022-10-16] MEDS: ceFAZolin 2 GM in Premix Bag 1 BAG IV SCH ×2 (02:09→10:01)
[2022-10-16] MEDS: Dextrose 5%-Lactated Ringers 1,000 ML IV SCH (06:28)
[2022-10-16] MEDS: Albuterol/Ipratropium 3.0-0.5 MG/3 ML Neb Soln INH SCH ×4 (07:00→21:06)
[2022-10-16] MEDS: Mometasone Furoate Powder 220 MCG/Puff 14 Dose Inhaler INH SCH (07:00)
[2022-10-16] MEDS ORDERED: Dextrose 5%-Lactated Ringers 1,000 ML IV SCH (07:30)
[2022-10-16] MEDS ORDERED: Ondansetron 4 MG Tab.DIS PO PRN (07:31)
[2022-10-16] MEDS: Cyclobenzaprine 10 MG Tab PO PRN (07:43)
[2022-10-16] MEDS: Aspirin 81 MG Tab.EC PO SCH ×2 (07:44→08:24)
[2022-10-16] MEDS: Heparin Sodium 5,000 Units/ML Vial SUBCUT SCH ×2 (07:45→19:43)
[2022-10-16] MEDS: Loratadine 10 MG Tab PO SCH ×2 (07:45→08:23)
[2022-10-16] MEDS: Acetaminophen 500 MG Tab PO SCH ×2 (07:46→16:57)
[2022-10-16] MEDS: DULoxetine 30 MG Cap PO SCH ×2 (07:46→08:24)
[2022-10-16] MEDS: Hypromellose 0.3% Ophth Soln 15 ML Bottle EYEBOTH SCH ×2 (07:47→08:24)
[2022-10-16] MEDS: Polyethylene Glycol 3350 Powder 17 GM Packet PO SCH ×4 (07:47→21:05)
[2022-10-16] MEDS: SCOPOLAMINE PATCH CHECK TOP SCH (08:24)
[2022-10-16] MEDS: traMADol 50 MG Tab PO PRN ×2 (10:00→19:43)
[2022-10-16] MEDS: Lisinopril 20 MG Tab PO SCH (10:01)
[2022-10-16] MEDS: MVI, Adult with Vitamin K 10 ML, Thiamine 200 MG, Zinc/Copper/Manganese/Selenium 1 ML i... IV SCH ×4 (16:52)
[2022-10-16] MEDS: Pantoprazole 40 MG Vial IVPUSH SCH (16:53)
[2022-10-16] MEDS: Pravastatin 20 MG Tab PO SCH (21:06)
[2022-10-17] MEDS: Acetaminophen 500 MG Tab PO SCH ×2 (01:28→08:20)
[2022-10-17] MEDS: Cyclobenzaprine 10 MG Tab PO PRN (04:38)
[2022-10-17] MEDS: traMADol 50 MG Tab PO PRN (07:09)
[2022-10-17] MEDS: Mometasone Furoate Powder 220 MCG/Puff 14 Dose Inhaler INH SCH (07:32)
[2022-10-17] MEDS: Albuterol/Ipratropium 3.0-0.5 MG/3 ML Neb Soln INH SCH ×2 (07:32→11:03)
[2022-10-17] MEDS: Heparin Sodium 5,000 Units/ML Vial SUBCUT SCH (08:19)
[2022-10-17] MEDS: Loratadine 10 MG Tab PO SCH (08:20)
[2022-10-17] MEDS: DULoxetine 30 MG Cap PO SCH (08:21)
[2022-10-17] MEDS: Hypromellose 0.3% Ophth Soln 15 ML Bottle EYEBOTH SCH (08:22)
[2022-10-17] MEDS: Aspirin 81 MG Tab.EC PO SCH (08:23)
[2022-10-17] MEDS: SCOPOLAMINE PATCH CHECK TOP SCH (08:23)
[2022-10-17] MEDS: Lisinopril 20 MG Tab PO SCH (08:24)
[2022-10-17] MEDS ORDERED: Magnesium Hydroxide 400 MG/5 ML Susp 30 ML Cup PO PRN (08:24)
[2022-10-17] MEDS: Polyethylene Glycol 3350 Powder 17 GM Packet PO SCH (08:25)
[2022-10-17] MEDS ORDERED: Cyanocobalamin (Vitamin B12) 1,000 MCG/ML SDV IM ONE (09:00)
== END 2022-10-17 13:05 | disposition home or self-care (01) | DRG 571 ==
LOC: JP.SDSSCHI 07:44 → JP.MS 13:00
PROVIDERS: ADMIT Surgery; ATTEND Surgery
PROC: 0JB80ZZ Excision of Abdomen Subcutaneous Tissue and Fascia, Open Approach (ICD-10-PCS; principal; 2022-10-15)
PROC: 0WQF0ZZ Repair Abdominal Wall, Open Approach (ICD-10-PCS; 2022-10-15)
DX: M79.3 Panniculitis, unspecified (principal); K43.0 Incisional hernia with obstruction, without gangrene; J44.9 Chronic obstructive pulmonary disease, unspecified; I10 Essential (primary) hypertension; E11.9 Type 2 diabetes mellitus without complications; M79.7 Fibromyalgia; G89.29 Other chronic pain; M54.50 Low back pain, unspecified; K21.9 Gastro-esophageal reflux disease without esophagitis; F32.9 Major depressive disorder, single episode, unspecified; K59.00 Constipation, unspecified; M19.90 Unspecified osteoarthritis, unspecified site; F10.10 Alcohol abuse, uncomplicated; F60.3 Borderline personality disorder; H91.90 Unspecified hearing loss, unspecified ear; G47.33 Obstructive sleep apnea (adult) (pediatric); E66.9 Obesity, unspecified; Z98.84 Bariatric surgery status; Z68.31 Body mass index [BMI] 31.0-31.9, adult; Z98.1 Arthrodesis status; Z88.8 Allergy status to other drugs, medicaments and biological substances
CPT/HCPCS: 36415; 80053; 82728; 83036; 83735; 83880; 84100; 88302; 94640; A9270-GY; C9113; J0131; J0171; J0330; J0690; J1100; J1170; J1644; J2020; J2185; J2405; J2704; J2710; J2795; J3010; J3410; J3411; J3420; J3490; J7121; J7620